=== PATIENT | female | born 1935 | race Caucasian/White ===

== ENCOUNTER 2024-01-12 06:47 | Inpatient (IN) | payer MEDICARE, BC, SELFPAY ==
--- NOTE | ~2024-01-12 | XR_ITS ---
EXAMINATION: XR KNEE, RIGHT CLINICAL INFORMATION: Pain after falling COMPARISON: None TECHNIQUE: Four views of the right knee. FINDINGS: No joint effusion, fracture, dislocation or destructive process. Medial degenerative change noted. Vascular calcifications noted. XR/XR knee RT 2V IMPRESSION: No fracture. Electronically signed by: Jose Antonio Ortiz MD 01/12/2024 09:07 AM EDT
--- NOTE | ~2024-01-12 | CT_ITS ---
EXAMINATION: CT HEAD WITHOUT CONTRAST CLINICAL INFORMATION: Fall, pain COMPARISON: None available. TECHNIQUE: Contiguous axial imaging was performed from the skull base to vertex without intravenous administration of contrast. This CT examination was performed using dose optimization techniques as appropriate, variously including the following: *Automated exposure control *Adjustment of mA and/or kV according to patient size (this includes techniques or standardized protocols for targeted exams where dose is matched to indication/reason for exam; i.e. extremities or head) *Use of iterative reconstruction technique DLP: 647 mGy-cm FINDINGS: There is no evidence of acute intracranial hemorrhage or edematous territorial infarction. Palafox-white matter differentiation appears preserved. Proportional prominence of the ventricles and cortical sulci with diffuse volume loss. Patchy and confluent hypodensities within the periventricular and deep white matter likely representing moderate chronic microangiopathy. Chronic lacunar infarct versus prominent perivascular space in the right inferior basal ganglia. No mass effect or midline shift. No acute extra-axial collection. No acute osseous or soft tissue abnormality. Mild paranasal sinus mucosal thickening. The mastoids are well-aerated. Cerumen in the external auditory canals bilaterally. CT/CT head/brain wo IV con IMPRESSION: No acute intracranial pathology. Diffuse volume loss and moderate chronic microangiopathy. Electronically signed by: Xavier Reyes MD 01/12/2024 08:28 AM EDT
--- NOTE | ~2024-01-12 | XR_ITS ---
EXAMINATION: XR KNEE, LEFT CLINICAL INFORMATION: Pain after falling COMPARISON: None TECHNIQUE: Four views of the left knee. FINDINGS: Moderate medial joint space narrowing with spurring off the medial tibial plateau. Spurring of the superior patella noted. No fracture, dislocation or destructive process. Vascular calcifications are observed. XR/XR knee LT 2V IMPRESSION: Degenerative changes noted. No fracture. Electronically signed by: Jose Antonio Ortiz MD 01/12/2024 09:06 AM EDT
--- NOTE | ~2024-01-12 | XR_ITS ---
EXAMINATION: XR CHEST CLINICAL INFORMATION: Weakness COMPARISON: None available. TECHNIQUE: Frontal view of the chest was obtained. FINDINGS: Hypoinflation with ill-defined left basilar opacity which may represent pneumonia. Prominence of the right hilum could represent a hilar mass or adenopathy. Small bilateral pleural effusions. XR/XR chest 1V IMPRESSION: 1. Hypoinflation with left basilar opacity which may represent pneumonia. 2. Prominence of the right hilum which may represent a hilar mass or adenopathy. Recommend CT of the chest for further evaluation. Electronically signed by: Juan Antonio Bird MD 01/12/2024 03:21 PM EDT
--- NOTE | ~2024-01-12 | CT_ITS ---
EXAMINATION: CT CERVICAL SPINE WITHOUT CONTRAST CLINICAL INFORMATION: Fall, pain COMPARISON: None available. TECHNIQUE: Contiguous axial imaging was performed from the upper chest through the skull base without intravenous administration of contrast. Coronal and sagittal reformats were obtained at the acquisition workstation. This CT examination was performed using dose optimization techniques as appropriate, variously including the following: *Automated exposure control *Adjustment of mA and/or kV according to patient size (this includes techniques or standardized protocols for targeted exams where dose is matched to indication/reason for exam; i.e. extremities or head) *Use of iterative reconstruction technique DLP: 245 mGy-cm FINDINGS: Diffuse decrease in osseous mineralization. The atlantooccipital and atlantoaxial articulations are maintained. Severe degenerative changes of the atlantodental articulations. Straightening of the normal cervical lordosis. The cervical vertebral bodies demonstrate normal height. Minimal anterolisthesis of C4 over C5 and C5 over C6. Multilevel cervical spondylosis with marginal osteophytes, endplate degenerative changes and intervertebral disc space narrowing most prominent at C6-C7. Severe facet arthropathy at multiple levels. No evidence of acute fracture or subluxation. There is no prevertebral soft tissue swelling. The thyroid gland and remaining cervical soft tissues are within normal limits. The lung apices straight biapical pleural parenchymal scarring, right greater than left. CT/CT cervical spine wo IV con IMPRESSION: No acute fracture involving the cervical spine. Multilevel cervical spondylosis as detailed with degenerative changes most pronounced at C6-C7. Electronically signed by: Xavier Reyes MD 01/12/2024 09:06 AM EDT
[2024-01-12 07:00] VITALS: BP 135/76; BP 172/80; PULSE 90; PULSE 94; RESP 16; TEMP 37; O2SAT 94; O2SAT 95; BMI 29.7
--- NOTE | 2024-01-12 07:00 | ED_ITS ---
HPI - General Adult General Chief complaint: Fall Stated complaint: UNWIT FALL,ON HANDS & KNEES,NO C/O,MEMORY CARE CONSTANTIN Time Seen by Provider: 01/12/24 06:59 Source: patient and EMS Mode of arrival: EMS Limitations: physical limitation (patient's demented at baseline) History of Present Illness ED Provider: Chetna Espinal PA-C HPI narrative: Patient is a 88 year old assigned female at with a history of CKD, HTN, squamous cell carcinoma, and dementia, presenting to the emergency department today after being found on her knees. Staff at the patient's memory care unit states that they found the patient on her hands and knees. Staff states that they are unsure if she was lowered to the floor by herself or if she fell. Staff states that the patient is acting per her baseline. Related Data Home Medications ?Medication ?Instructions ?Recorded ?Confirmed Lactobacillus 40-Bifidobact 1 cap PO DAILY 01/12/24 01/12/24 3-S.thermophilus 100 billion cell capsule (Probiotic) acetaminophen 500 mg tablet 500 mg PO BID PRN Fever Or Pain 01/12/24 01/12/24 amlodipine 5 mg tablet 5 mg PO DAILY 01/12/24 01/12/24 cholecalciferol (vitamin D3) 25 25 mcg PO DAILY 01/12/24 01/12/24 mcg (1,000 unit) tablet (Vitamin D3) furosemide 20 mg tablet 20 mg PO DAILY 01/12/24 01/12/24 gabapentin 100 mg capsule 100 mg PO DAILY@1600 01/12/24 01/12/24 melatonin 5 mg tablet 5 mg PO BEDTIME Sleep 01/12/24 01/12/24 menthol 0.44 %-zinc oxide 20.6 % 1 appl topical BID 01/12/24 01/12/24 topical ointment (Calmoseptine) mirtazapine 7.5 mg tablet 7.5 mg PO BEDTIME 01/12/24 01/12/24 multivitamin 1 tab PO DAILY 01/12/24 01/12/24 Allergies Allergy/AdvReac Type Severity Reaction Status Date / Time No Known Allergies Allergy Verified 01/12/24 07:04 Review of Systems 2 Review of Systems: Yes Other (patient severely demented) Neurologic: Reports confusion (per baseline) Psychiatric: Psychiatric: Reports confusion (per baseline) [facility] Past Medical History Attestation statement: The following information was validated with the patient. (all information validated with memory unit staff) Source: old records reviewed, nursing notes reviewed and other ([facility] records reviewed) Social History Social History Unable to assess alcohol history related to: Unknown Use of substances other than those prescribed or required for medical reasons: Unable to respond Advance Directives: Yes Advance Directives on File: Yes Advance Directives Date on File: 01/12/24 Do you have a plan to hurt others: No Plan Physical Exam ED Vital Signs: Vital Signs - 24 hr 01/12/24 07:00 01/12/24 07:10 01/12/24 07:10 Temperature 98.6 F 98.6 F 98.6 F Pulse Rate 90 90 90 Respiratory Rate 16 16 16 Blood Pressure 135/76 135/76 135/76 Pulse Oximetry 95 95 95 Oxygen Delivery Method Room Air Room Air BMI result Body Mass Index 29.7 Const General: cooperative, no acute distress, alert, awake and confusion (per baseline) Nutritional Appearance: well nourished Orientation/consciousness: confusion (per baseline) Limitations: no limitations HENMT Head: Yes normal to inspection and Yes atraumatic Ears: hearing grossly normal bilaterally and external ears normal General nose exam: Normal external nose present, no nasal discharge noted and no epistaxis Face and sinus: Yes normal facial exam, No abrasion and No laceration Mouth: Normal oral and palatal mucosa present, no drooling and no muffled voice Eyes General: appearance normal, both eyes and all related structures Periorbital: periorbital findings normal Eyelids: Yes eyelids normal Conjunctivae: conjunctivae normal Pupils: Equal, round and reactive pupils present EOM: EOMs intact bilaterally Neck Neck: Yes normal visual inspection, Yes full ROM and Yes no lymphadenopathy Chest Chest palpation & inspection: normal inspection of the chest Resp Effort & Inspection: normal respiratory effort and able to speak in complete sentences GI Inspection: Yes normal to inspection Neuro General: moves all extremities and confusion (per baseline) Cranial nerves: Yes Equal, round and reactive pupils present Extrem Other: bilateral knee redness General: Yes full ROM and Yes capillary refill normal Psych Appearance: grossly normal Mental Status: mental status grossly normal Affect: normal affect Attitude: cooperative Thought process: Normal thought process present Thought content: Normal thought content present Insight: Good insight present (Psych) Medications Administered Discontinued Medications Generic Name Dose Route Start Last Admin Trade Name Vu PRN Reason Stop Dose Admin Lactated Ringer's 1,000 mls @ 999 mls/hr 01/12/24 10:30 01/12/24 14:39 Lr IV 01/12/24 11:30 Infused .Q1H1M SOWMYA Infusion Olanzapine 2.5 mg 01/12/24 07:47 01/12/24 13:00 Olanzapine 2.5 Mg Tablet PO 01/12/24 07:48 Not Given ONCE ONE Medical Decision Making Medical Decision Making MDM Narrative: Patient is an 88 year old assigned female at with a history of CKD, HTN, squamous cell carcinoma of the wrist, and dementia presenting to the emergency department today after being found on her knees in the memory unit. Patient's physical exam was as noted in the physical exam portion of this note. Patient's blood work showed a mildly elevated WBC count of 13.9, an initial BUN of 31 (repeat 27), alk phos of 126 (repeat 127), total CK of 1328 (repeat 3401), initial troponin of 190.3 (2 hour repeat 292, 3 hour repeat 213.8.) Patient's urine is pending. Patient's EKG was unremarkable. Patient's chest x-ray showed a possible left basilar pneumonia. Patient's left and right knee x-rays showed no acute process. Patient's CT head and c-spine showed no acute process. Patient's clinical presentation is not consistent with sepsis (@1428). I spoke to the hospitalist team who agreed to admission. Differential Diagnosis Differential Diagnoses: The differential diagnosis associated with the presentation includes Dehydration Fall PNA Admission/Observation Consideration of admission/observation: Escalation of care including admission/observation considered Patient admitted. Consult Healthcare Provider Management of the patient was discussed with: Hospitalist (agreed to admission) Lab Data [facility] Lab Attestation statement: I reviewed the patient's lab results. My interpretation of these results are in the MDM Rationale portion of this note. 01/12/24 08:52 01/12/24 13:26 Labs: Lab Results 01/12/24 01/12/24 01/12/24 Range/Units 08:40 08:52 10:59 WBC 13.9 H (4.8-10.8) X10*3/uL RBC 4.58 (4.20-5.50) X10*6/uL Hgb 13.3 (12.0-16.0) g/dl Hct 40.7 (37.0-47.0) % MCV 88.9 (80.0-98.0) fL MCH 29.0 (27.0-33.0) pg MCHC 32.7 (31.0-35.0) g/dl RDW 13.5 (11.0-16.0) % Plt Count 268 (160-400) X10*3/uL MPV 10.1 (9.4-12.3) fL Immature Gran % (Auto) 0.4 (0.0-0.4) % Neut % (Auto) 91.1 H (45-73) % Lymph % (Auto) 4.6 L (20-40) % [place] % (Auto) 3.7 (2-11) % Eos % (Auto) 0.0 (0-4) % Baso % (Auto) 0.2 (0-2) % Lymph # (Auto) 0.6 L (1.2-4.9) X10*3/uL [place] # (Auto) 0.5 (0.1-1.2) X10*3/uL Eos # (Auto) 0.0 (0.0-0.4) X10*3/uL Baso # (Auto) 0.0 (0.0-0.2) X10*3/uL Abs Immat Gran (auto) 0.06 H (0.00-0.03) X10*3/uL Absolute Neuts (auto) 12.7 H (2.0-8.3) x10*3/uL Absolute Nucleated RBC 0.000 (0.0-0.012) X10*3/uL Nucleated RBC % (auto) 0.0 (0.0-0.2) /100WBC Smear Tech's Comments VERIFIED Sodium 141 (135-145) mmol/L Potassium 4.0 (3.3-5.1) mmol/L Chloride 108 (96-108) mmol/L Carbon Dioxide 26 (22-29) mmol/L Anion Gap 11 L (12-20) BUN 31 H (9-16) mg/dL Creatinine 1.30 (0.5-1.4) mg/dL Estim Creat Clear Calc 30.3 Estimated GFR 39 Random Glucose 113 (60-115) mg/dL Calcium 9.3 (8.4-10.2) mg/dL Magnesium 2.2 (1.6-2.6) mg/dL Total Bilirubin 0.4 (0.0-1.0) mg/dL AST 38 H (5-31) U/L ALT 21 (0-31) U/L Alkaline Phosphatase 126 H (39-117) U/L Total Creatine Kinase 1328 H (26-140) U/L Troponin I High Sens 190.3 H* 292.0 H* D (<3.5-17.0) ng/L Total Protein 7.0 (6.5-8.0) g/dL Albumin 3.7 (3.5-5.0) g/dL Influenza Type A (PCR) NEGATIVE (Negative) Influenza Type B (PCR) NEGATIVE (Negative) RSV RNA Qual (PCR) NEGATIVE (Negative) SARS-CoV-2 RNA (RT-PCR) NEGATIVE (Negative) 01/12/24 01/12/24 Range/Units 13:26 13:36 WBC (4.8-10.8) X10*3/uL RBC (4.20-5.50) X10*6/uL Hgb (12.0-16.0) g/dl Hct (37.0-47.0) % MCV (80.0-98.0) fL MCH (27.0-33.0) pg MCHC (31.0-35.0) g/dl RDW (11.0-16.0) % Plt Count (160-400) X10*3/uL MPV (9.4-12.3) fL Immature Gran % (Auto) (0.0-0.4) % Neut % (Auto) (45-73) % Lymph % (Auto) (20-40) % [place] % (Auto) (2-11) % Eos % (Auto) (0-4) % Baso % (Auto) (0-2) % Lymph # (Auto) (1.2-4.9) X10*3/uL [place] # (Auto) (0.1-1.2) X10*3/uL Eos # (Auto) (0.0-0.4) X10*3/uL Baso # (Auto) (0.0-0.2) X10*3/uL Abs Immat Gran (auto) (0.00-0.03) X10*3/uL Absolute Neuts (auto) (2.0-8.3) x10*3/uL Absolute Nucleated RBC (0.0-0.012) X10*3/uL Nucleated RBC % (auto) (0.0-0.2) /100WBC Smear Tech's Comments Sodium 139 (135-145) mmol/L Potassium 4.2 (3.3-5.1) mmol/L Chloride 108 (96-108) mmol/L Carbon Dioxide 21 L (22-29) mmol/L Anion Gap 14 (12-20) BUN 27 H (9-16) mg/dL Creatinine 1.15 (0.5-1.4) mg/dL Estim Creat Clear Calc 34.3 Estimated GFR 45 Random Glucose 111 (60-115) mg/dL Calcium 9.4 (8.4-10.2) mg/dL Magnesium (1.6-2.6) mg/dL Total Bilirubin 0.4 (0.0-1.0) mg/dL AST 82 H (5-31) U/L ALT 29 (0-31) U/L Alkaline Phosphatase 127 H (39-117) U/L Total Creatine Kinase 3401 H (26-140) U/L Troponin I High Sens 213.8 H* (<3.5-17.0) ng/L Total Protein 6.9 (6.5-8.0) g/dL Albumin 3.5 (3.5-5.0) g/dL Influenza Type A (PCR) (Negative) Influenza Type B (PCR) (Negative) RSV RNA Qual (PCR) (Negative) SARS-CoV-2 RNA (RT-PCR) (Negative) Independent Interpretation I performed an independent interpretation of an: EKG, Plain X-Ray and CT Scan Interpretation: My interpretation is in agreement with the radiologist's impression of these imaging studies. L EXAMINATION: XR CHEST CLINICAL INFORMATION: Weakness COMPARISON: None available. TECHNIQUE: Frontal view of the chest was obtained. FINDINGS: Hypoinflation with ill-defined left basilar opacity which may represent pneumonia. Prominence of the right hilum could represent a hilar mass or adenopathy. Small bilateral pleural effusions. XR/XR chest 1V IMPRESSION: 1. Hypoinflation with left basilar opacity which may represent pneumonia. 2. Prominence of the right hilum which may represent a hilar mass or adenopathy. Recommend CT of the chest for further evaluation. Electronically signed by: Juan Antonio Bird MD 01/12/2024 03:21 PM EDT Dictated By: Juan Antonio Bird MD Signed By: Electronically signed by Juan Antonio Bird MD 01/12/24 1521 EXAMINATION: XR KNEE, LEFT CLINICAL INFORMATION: Pain after falling COMPARISON: None TECHNIQUE: Four views of the left knee. FINDINGS: Moderate medial joint space narrowing with spurring off the medial tibial plateau. Spurring of the superior patella noted. No fracture, dislocation or destructive process. Vascular calcifications are observed. XR/XR knee LT 2V IMPRESSION: Degenerative changes noted. No fracture. Electronically signed by: Jose Antonio Ortiz MD 01/12/2024 09:06 AM EDT Dictated By: Jose Antonio Ortiz MD Signed By: Electronically signed by Jose Antonio Ortiz MD 01/12/24 0906 EXAMINATION: CT HEAD WITHOUT CONTRAST CLINICAL INFORMATION: Fall, pain COMPARISON: None available. TECHNIQUE: Contiguous axial imaging was performed from the skull base to vertex without intravenous administration of contrast. This CT examination was performed using dose optimization techniques as appropriate, variously including the following: *Automated exposure control *Adjustment of mA and/or kV according to patient size (this includes techniques or standardized protocols for targeted exams where dose is matched to indication/reason for exam; i.e. extremities or head) *Use of iterative reconstruction technique DLP: 647 mGy-cm FINDINGS: There is no evidence of acute intracranial hemorrhage or edematous territorial infarction. Palafox-white matter differentiation appears preserved. Proportional prominence of the ventricles and cortical sulci with diffuse volume loss. Patchy and confluent hypodensities within the periventricular and deep white matter likely representing moderate chronic microangiopathy. Chronic lacunar infarct versus prominent perivascular space in the right inferior basal ganglia. No mass effect or midline shift. No acute extra-axial collection. No acute osseous or soft tissue abnormality. Mild paranasal sinus mucosal thickening. The mastoids are well-aerated. Cerumen in the external auditory canals bilaterally. CT/CT head/brain wo IV con IMPRESSION: No acute intracranial pathology. Diffuse volume loss and moderate chronic microangiopathy. Electronically signed by: Xavier Reyes MD 01/12/2024 08:28 AM EDT Dictated By: Xavier Reyes Signed By: Electronically signed by Xavier Reyes 01/12/24 0828 EXAMINATION: XR KNEE, RIGHT CLINICAL INFORMATION: Pain after falling COMPARISON: None TECHNIQUE: Four views of the right knee. FINDINGS: No joint effusion, fracture, dislocation or destructive process. Medial degenerative change noted. Vascular calcifications noted. XR/XR knee RT 2V IMPRESSION: No fracture. Electronically signed by: Jose Antonio Ortiz MD 01/12/2024 09:07 AM EDT Dictated By: Jose Antonio Ortiz MD Signed By: Electronically signed by Jose Antonio Ortiz MD 01/12/24 0907 EXAMINATION: CT CERVICAL SPINE WITHOUT CONTRAST CLINICAL INFORMATION: Fall, pain COMPARISON: None available. TECHNIQUE: Contiguous axial imaging was performed from the upper chest through the skull base without intravenous administration of contrast. Coronal and sagittal reformats were obtained at the acquisition workstation. This CT examination was performed using dose optimization techniques as appropriate, variously including the following: *Automated exposure control *Adjustment of mA and/or kV according to patient size (this includes techniques or standardized protocols for targeted exams where dose is matched to indication/reason for exam; i.e. extremities or head) *Use of iterative reconstruction technique DLP: 245 mGy-cm FINDINGS: Diffuse decrease in osseous mineralization. The atlantooccipital and atlantoaxial articulations are maintained. Severe degenerative changes of the atlantodental articulations. Straightening of the normal cervical lordosis. The cervical vertebral bodies demonstrate normal height. Minimal anterolisthesis of C4 over C5 and C5 over C6. Multilevel cervical spondylosis with marginal osteophytes, endplate degenerative changes and intervertebral disc space narrowing most prominent at C6-C7. Severe facet arthropathy at multiple levels. No evidence of acute fracture or subluxation. There is no prevertebral soft tissue swelling. The thyroid gland and remaining cervical soft tissues are within normal limits. The lung apices straight biapical pleural parenchymal scarring, right greater than left. CT/CT cervical spine wo IV con IMPRESSION: No acute fracture involving the cervical spine. Multilevel cervical spondylosis as detailed with degenerative changes most pronounced at C6-C7. Electronically signed by: Xavier Reyes MD 01/12/2024 09:06 AM EDT Dictated By: Xavier Reyes Signed By: Electronically signed by Xavier Reyes 01/12/24 09 Vent. Rate: 089 BPM Atrial Rate: 089 BPM P-R Int: 146 ms QRS Dur: 094 ms QT Int: 382 ms P-R-T Axes: 021 -28 024 degrees QTc Int: 464 ms Poor data quality, interpretation may be adversely affected Normal sinus rhythm Normal ECG No previous ECGs available Electronically Signed By:MARAL THURSTON DOFACP Dictated By: Maral Thurston DO Signed By: Electronically signed by Maral Thurston DO 01/12/24 1246 Radiology Impression Discussion of test interpretation with radiology: I have reviewed the radiologist's reading. Independent Historian Clinical information obtained from an independent historian. History obtained from or confirmed by: EMS (EMS provided additional history) Critical Care Time Critical Care Time Critical Care Time: Yes Total Critical Care Time: 51 Attestation: I spent 51 minutes of Critical Care Time with this patient. This does not include time spent on separately reported billable procedures. Discharge Plan Discharge Clinical Impression: Dehydration, Pneumonia, Fall Patient Disposition: Admitted As Inpatient Print Language: Iraqi
[2024-01-12 07:10] VITALS: BP 135/76; PULSE 90; RESP 16; TEMP 37; O2SAT 95
--- NOTE | 2024-01-12 07:12 | ECG_ITS ---
Test Reason : unwitnessed fall Blood Pressure : / mmHG Vent. Rate : 089 BPM Atrial Rate : 089 BPM P-R Int : 146 ms QRS Dur : 094 ms QT Int : 382 ms P-R-T Axes : 021 -28 024 degrees QTc Int : 464 ms Poor data quality, interpretation may be adversely affected Normal sinus rhythm Normal ECG No previous ECGs available Referred By: Chetna Espinal Electronically Signed By:MARAL ROBBINS
--- NOTE | 2024-01-12 08:18 | PC.NURSE ---
This RN alerted by ED techs Pt removed her c-collar prior to being cleared via imaging. ED provider notified. One time dose Zyrpexa ordered to with Pts restlessness and agitation. Pt brought to CT and Xray prior to administration and Pt has now bee returned to room and is sleeping.
[2024-01-12 08:58] LABS: Basophils Percent Auto 0.2 % (0-2); Hematocrit 40.7 % (37.0-47.0); Hemoglobin 13.3 g/dl (12.0-16.0); Imm Gran Abs Auto 0.06 X10*3/uL (0.00-0.03); Imm Gran Pct Auto 0.4 % (0.0-0.4); Lymphocytes Absolute Auto 0.6 X10*3/uL (1.2-4.9); Lymphocytes Percent Auto 4.6 % (20-40); MANUAL DIFF FLAG SCAN; Mean Corpuscular HGB Conc 32.7 g/dl (31.0-35.0); Mean Corpuscular Volume 88.9 fL (80.0-98.0); Mean Platelet Volume 10.1 fL (9.4-12.3); Monocytes Absolute Auto 0.5 X10*3/uL (0.1-1.2); Monocytes Percent Auto 3.7 % (2-11); Neutrophils Absolute Auto 12.7 x10*3/uL (2.0-8.3); Neutrophils Percent Auto 91.1 % (45-73); Platelet Count 268 X10*3/uL (160-400); Red Blood Count 4.58 X10*6/uL (4.20-5.50); Red Cell Distribution Width 13.5 % (11.0-16.0); SCAN SMEAR FLAG 1; White Blood Count 13.9 X10*3/uL (4.8-10.8)
--- NOTE | 2024-01-12 09:13 | PHA.MEDREC ---
Addendum entered by Poonam Koenig RPh 01/12/24 09:20: Med rec was reviewed by [facility]. Original Note: Pharmacy Consult ? Medication Reconciliation Pharmacy has completed the medication reconciliation. Utilized list from [facility] to confirm med list.
[2024-01-12 09:20] LABS: Alanine Aminotransferase 21 U/L (0-31); Albumin Level 3.7 g/dL (3.5-5.0); Alkaline Phosphatase 126 U/L (39-117); Anion Gap 11 (12-20); Aspartate Amino Transferase 38 U/L (5-31); Bilirubin Total 0.4 mg/dL (0.0-1.0); Blood Urea Nitrogen 31 mg/dL (9-16); Calcium 9.3 mg/dL (8.4-10.2); Carbon Dioxide 26 mmol/L (22-29); Chloride 108 mmol/L (96-108); Creatinine Clr Calc Pharmacy 30.3; Estimated Glomerular Filt Rate 39; Glucose Random 113 mg/dL (60-115); Magnesium 2.2 mg/dL (1.6-2.6); Sodium 141 mmol/L (135-145)
[2024-01-12 09:36] LABS: SLIDE REVIEW VERIFIED
[2024-01-12 09:44] LABS: Influenza A PCR NEGATIVE (Negative); Influenza B PCR NEGATIVE (Negative); Resp Syncy Virus RNA Qual PCR NEGATIVE (Negative); SARS COV2 PCR INHOUSE NEGATIVE (Negative)
[2024-01-12 09:58] LABS: Troponin-I High Sensitivity 190.3 ng/L (<3.5-17.0)
[2024-01-12] MEDS: Lactated Ringers 1,000 ML 999 ML IV (11:00)
--- NOTE | 2024-01-12 11:02 | PC.NURSE ---
Pt resting comfortably in bed. 20g LAC placed--Pt tolerated placement well.
[2024-01-12 14:20] LABS: Troponin-I High Sensitivity 213.8 ng/L (<3.5-17.0)
[2024-01-12 14:22] LABS: Alanine Aminotransferase 29 U/L (0-31); Albumin Level 3.5 g/dL (3.5-5.0); Alkaline Phosphatase 127 U/L (39-117); Anion Gap 14 (12-20); Aspartate Amino Transferase 82 U/L (5-31); Bilirubin Total 0.4 mg/dL (0.0-1.0); Blood Urea Nitrogen 27 mg/dL (9-16); Calcium 9.4 mg/dL (8.4-10.2); Carbon Dioxide 21 mmol/L (22-29); Chloride 108 mmol/L (96-108); Creatinine Clr Calc Pharmacy 34.3; Estimated Glomerular Filt Rate 45; Glucose Random 111 mg/dL (60-115); Potassium 4.2 mmol/L (3.3-5.1); Sodium 139 mmol/L (135-145); Total Protein 6.9 g/dL (6.5-8.0)
--- NOTE | 2024-01-12 15:04 | MHC.CM.ED ---
Addendum entered by Maame Arguello RN 01/12/24 15:09: MESSAGE LEFT AT [facility] OFFICE AT [phone] FOR A CALL BACK TO DISCUSS DC EXPECTATIONS. Original Note: PATIENT IS IN FROM [facility] IN [place]. [facility] IS ON FILE AND VERIFIED. DOCUMENT DOES NOT ALLOW FOR SNF PLACEMENT AT THIS TIME. PATIENT HAS FEDERAL INSURANCE PLAN THAT DOES NOT HAVE SNF BENEIT IF NEEDED. CM TO CONTACT GUARDIAN AND AMEND THIS NOTE
[2024-01-12] MEDS: cefTRIAXone sodium 1 GM in 0.9 % Sodium Chloride 50 ML IV (16:13)
[2024-01-12] MEDS: Gabapentin 100 MG CAPSULE PO (16:14)
--- NOTE | 2024-01-12 16:14 | PC.NURSE ---
New IV access placed: 20g LAC. Pt given scheduled Gabapentin in pudding, Pt took well.
--- NOTE | 2024-01-12 16:20 | PM.IMHP ---
History of Present Illness Date of Service: 01/12/24 Chief Complaint: Fall 88-year-old female patient with past medical history of chronic kidney disease 3, hypertension, squamous cell carcinoma dementia resident of assisted living facility at [facility] was sent to [facility] since patient was found by the staff on the floor on her hands and knees, question patient fell down versus lowered herself to the floor patient was noted to be at her baseline with underlying dementia, at present patient is unable to provide any meaningful history, does not appear to be in distress workup in the emergency room showed a CPK 1328 repeat CPK after IV fluid was 3401, noted to have elevated troponin 190 >292>213 , EKG showed normal sinus rhythm, no acute ischemic changes poor data quality, chest x-ray showed hypoinflation with possible left basilar opacity may representing pneumonia, prominence of right hilum which may represent a hilar mass or adenopathy, CT cervical spine and CT head showed no acute abnormality x-ray of left knee showed no acute fractures, patient is being admitted to [facility] due to possible pneumonia, fall and acute rhabdomyolysis requiring IV fluids and close clinical follow-up. Review of Systems Review of Systems: Unable to obtain due to underlying dementia PMFSH Pertinent family history: Unable to obtain due to dementia Social History Household Members: Unknown / Unable to assess Housing: Unknown / Unable to assess Do you presently have visiting nurse or other home services: No Unable to assess alcohol history related to: Unknown Patient Tobacco Use Status: Tobacco use Unknown Use of substances other than those prescribed or required for medical reasons: Unable to respond Currently Displaying Signs/Symptoms of Drug Intoxication Withdrawal: No Advance Directives: Yes Advance Directives on File: Yes Advance Directives Date on File: 01/12/24 Do you have a plan to hurt others: No Plan Recently lost weight without trying: Unsure Nutrition Risks: No Nutritional Risk Patient : No : No Poor oral hygiene: No Meds Allergies Allergy/AdvReac Type Severity Reaction Status Date / Time No Known Allergies Allergy Verified 01/12/24 07:04 Active Medications: Current Medications Acetaminophen (Acetaminophen 325 Mg Tablet) 650 mg PO Q6H PRN PRN Reason: Pain, Mild (Pain Scale 1-3), fever or headache Calcium Carbonate (Calcium Carbonate 750 Mg Tab.Chew) 750 mg PO Q4H PRN PRN Reason: Heartburn Enoxaparin Sodium (Enoxaparin Sodium 40 Mg/0.4 Ml Syringe) 40 mg SUBCUT Q24H [facility] Gabapentin (Gabapentin 100 Mg Capsule) 100 mg PO DAILY@1600 [facility] Last Admin: 01/12/24 16:14 Dose: 100 mg Lactated Ringer's (Lr) 1,000 mls @ 100 mls/hr IVCONT .Q10H [facility] Stop: 01/13/24 02:14 Magnesium Hydroxide (Milk Of Magnesia 30 Ml Oral.Susp) 30 ml PO DAILY PRN PRN Reason: Constipation Melatonin (Melatonin 3 Mg Tablet) 6 mg PO BEDTIME PRN PRN Reason: Insomnia Mirtazapine (Mirtazapine 7.5 Mg Tablet) 7.5 mg PO BEDTIME SOWMYA Ondansetron HCl (Ondansetron Hcl 4 Mg/2 Ml Vial) 4 mg IVPUSH Q8H PRN PRN Reason: Nausea and Vomiting Polyethylene Glycol (Polyethylene Glycol 3350 17 Gm Powd.Pack) 17 gm PO DAILY PRN PRN Reason: Constipation Sodium Chloride (0.9 % Sodium Chloride Flush 3 Ml Syringe) 3 ml IVFLUSH QSHIFT [facility] Vitamin D (Cholecalciferol (Vitamin D3) 25 Mcg Tablet) 25 mcg PO DAILY [facility] Home Medications ?Medication ?Instructions ?Recorded ?Confirmed ?Last Taken ?Type Lactobacillus 40-Bifidobact 1 cap PO DAILY 01/12/24 01/12/24 Unknown History 3-S.thermophilus 100 billion cell capsule (Probiotic) acetaminophen 500 mg tablet 500 mg PO BID PRN Fever Or Pain 01/12/24 01/12/24 Unknown History amlodipine 5 mg tablet 5 mg PO DAILY 01/12/24 01/12/24 Unknown History cholecalciferol (vitamin D3) 25 25 mcg PO DAILY 01/12/24 01/12/24 Unknown History mcg (1,000 unit) tablet (Vitamin D3) furosemide 20 mg tablet 20 mg PO DAILY 01/12/24 01/12/24 Unknown History gabapentin 100 mg capsule 100 mg PO DAILY@1600 01/12/24 01/12/24 Unknown History melatonin 5 mg tablet 5 mg PO BEDTIME Sleep 01/12/24 01/12/24 Unknown History menthol 0.44 %-zinc oxide 20.6 % 1 appl topical BID 01/12/24 01/12/24 Unknown History topical ointment (Calmoseptine) mirtazapine 7.5 mg tablet 7.5 mg PO BEDTIME 01/12/24 01/12/24 Unknown History multivitamin 1 tab PO DAILY 01/12/24 01/12/24 Unknown History Physical Exam Vital Signs and Narrative: Vital Signs: Last Vital Signs Temp 98.6 F 01/12/24 07:10 Pulse 90 01/12/24 07:10 Resp 16 01/12/24 07:10 BP 135/76 01/12/24 07:10 Pulse Ox 95 01/12/24 07:10 O2 Del Method Room Air 01/12/24 07:10 BMI result Body Mass Index 29.7 Const: Other: General resting comfortably in no acute distress. Neck supple no JVD. CVS regular rate rhythm, Respiratory lungs clear to auscultation, no respiratory distress, no wheeze, no rhonchi. Gastrointestinal abdomen soft, non tender, bowel sounds audible. Extremities no edema. Both knees no bruising or swelling Neuro moving all 4 extremity, incoherent/garbled speech. Skin no rash Psych poor insight Results Labs 01/13/24 10:11 01/12/24 13:26 Labs: Laboratory Results - last 24 hr 01/12/24 01/12/24 01/12/24 08:40 08:52 10:59 MCV 88.9 MCH 29.0 MCHC 32.7 RDW 13.5 Plt Count 268 MPV 10.1 Immature Gran % (Auto) 0.4 Neut % (Auto) 91.1 H Lymph % (Auto) 4.6 L Mora % (Auto) 3.7 Eos % (Auto) 0.0 Baso % (Auto) 0.2 Lymph # (Auto) 0.6 L Mora # (Auto) 0.5 Eos # (Auto) 0.0 Baso # (Auto) 0.0 Abs Immat Gran (auto) 0.06 H Absolute Neuts (auto) 12.7 H Absolute Nucleated RBC 0.000 Nucleated RBC % (auto) 0.0 Smear Tech's Comments VERIFIED Anion Gap 11 L Estim Creat Clear Calc 30.3 Estimated GFR 39 Random Glucose 113 Calcium 9.3 Magnesium 2.2 Total Bilirubin 0.4 AST 38 H ALT 21 Alkaline Phosphatase 126 H Total Creatine Kinase 1328 H Troponin I High Sens 190.3 H* 292.0 H* D Total Protein 7.0 Albumin 3.7 Influenza Type A (PCR) NEGATIVE Influenza Type B (PCR) NEGATIVE RSV RNA Qual (PCR) NEGATIVE SARS-CoV-2 RNA (RT-PCR) NEGATIVE 01/12/24 01/12/24 13:26 13:36 MCV MCH MCHC RDW Plt Count MPV Immature Gran % (Auto) Neut % (Auto) Lymph % (Auto) Mora % (Auto) Eos % (Auto) Baso % (Auto) Lymph # (Auto) Mora # (Auto) Eos # (Auto) Baso # (Auto) Abs Immat Gran (auto) Absolute Neuts (auto) Absolute Nucleated RBC Nucleated RBC % (auto) Smear Tech's Comments Anion Gap 14 Estim Creat Clear Calc 34.3 Estimated GFR 45 Random Glucose 111 Calcium 9.4 Magnesium Total Bilirubin 0.4 AST 82 H ALT 29 Alkaline Phosphatase 127 H Total Creatine Kinase 3401 H Troponin I High Sens 213.8 H* Total Protein 6.9 Albumin 3.5 Influenza Type A (PCR) Influenza Type B (PCR) RSV RNA Qual (PCR) SARS-CoV-2 RNA (RT-PCR) Imaging Radiologist's Impressions: Impressions Cervical Spine CT 01/12/24 07:12 IMPRESSION: No acute fracture involving the cervical spine. Multilevel cervical spondylosis as detailed with degenerative changes most pronounced at C6-C7. Electronically signed by: Xavier Reyes MD 01/12/2024 09:06 AM EDT RP Knee X-Ray 01/12/24 07:12 IMPRESSION: No fracture. Electronically signed by: Jose Antonio Ortiz MD 01/12/2024 09:07 AM EDT RP Head CT 01/12/24 07:52 IMPRESSION: No acute intracranial pathology. Diffuse volume loss and moderate chronic microangiopathy. Electronically signed by: Xavier Reyes MD 01/12/2024 08:28 AM EDT RP Knee X-Ray 01/12/24 07:55 IMPRESSION: Degenerative changes noted. No fracture. Electronically signed by: Jose Antonio Ortiz MD 01/12/2024 09:06 AM EDT RP Chest X-Ray 01/12/24 11:50 IMPRESSION: 1. Hypoinflation with left basilar opacity which may represent pneumonia. 2. Prominence of the right hilum which may represent a hilar mass or adenopathy. Recommend CT of the chest for further evaluation. Electronically signed by: Juan Antonio Bird MD 01/12/2024 03:21 PM EDT RP Assessment and Plan (1) Rhabdomyolysis: Status: Acute (2) Fall: Status: Acute (3) Pneumonia: Status: Acute Plan 88-year-old female with underlying history of dementia, chronic kidney disease stage 3 was sent to [place] emergency room from assisted living facility after patient was found on the floor on her hands and knees, patient unable to provide meaningful history is no further history surrounding fall is available. Acute rhabdomyolysis due to fall IV fluids follow CPK stable renal function Leukocytosis likely pneumonia versus reactive IV ceftriaxone and azithromycin Normal lactic acid, no fevers, Follow UA No sepsis Elevated troponin Likely due to rhabdomyolysis, EKG no acute ischemia No further workup warranted Unspecified dementia continue home medication As per nursing staff no change in baseline mentation. Hypertension on amlodipine and Lasix follow BP and resume medications Full code Lovenox In my clinical judgment patient need to night inpatient hospitalization for IV fluids due to acute rhabdomyolysis and further workup and treatment with iv abx for possible pneumonia. Quality Stroke Does the patient have a stroke diagnosis?: No VTE Prior VTE?: No VTE Risk Level:: Medical - moderate - high VTE Device Contraindication: Treatment Not Indicated VTE Drug Contraindication: N/A - Med Ordered
[2024-01-12 16:25] LABS: Lactic Acid 1.1 mmol/L (0.5-2.0)
[2024-01-12 16:45] VITALS: BP 152/67; PULSE 76; RESP 18; TEMP 37; O2SAT 95
[2024-01-12 17:55] VITALS: BP 122/89; PULSE 95; RESP 18; TEMP 36.6; O2SAT 94
[2024-01-12] MEDS: Enoxaparin Sodium 40 MG/0.4 ML SYRINGE SUBCUT (17:56)
[2024-01-12] MEDS: Lactated Ringers 1,000 ML 100 ML IVCONT (17:56)
[2024-01-12] MEDS: Azithromycin 500 MG in 0.9 % Sodium Chloride 250 ML 125 MG IV (17:56)
[2024-01-12 19:52] VITALS: BP 138/73; PULSE 93; RESP 18; TEMP 36.4; O2SAT 94
[2024-01-12] MEDS: Mirtazapine 7.5 MG TABLET PO (20:41)
[2024-01-13 03:12] VITALS: BP 152/64; PULSE 78; RESP 18; TEMP 36.7; O2SAT 94
[2024-01-13 07:17] VITALS: BP 155/90; PULSE 82; RESP 18; TEMP 36.4; O2SAT 96
[2024-01-13] MEDS: Cholecalciferol (Vitamin D3) 25 MCG TABLET PO (09:04)
[2024-01-13 10:31] LABS: Hematocrit 40.6 % (37.0-47.0); Hemoglobin 13.2 g/dl (12.0-16.0); Mean Corpuscular HGB Conc 32.5 g/dl (31.0-35.0); Mean Corpuscular Hemoglobin 28.8 pg (27.0-33.0); Mean Corpuscular Volume 88.6 fL (80.0-98.0); Mean Platelet Volume 10.6 fL (9.4-12.3); Platelet Count 241 X10*3/uL (160-400); Red Blood Count 4.58 X10*6/uL (4.20-5.50); Red Cell Distribution Width 13.8 % (11.0-16.0); White Blood Count 7.4 X10*3/uL (4.8-10.8)
[2024-01-13 14:06] VITALS: BP 155/90; PULSE 82; O2SAT 96
--- NOTE | 2024-01-13 14:28 | P.PNIM_ITS ---
Subjective Subjective Date of Service: 01/13/24 Interval History: Being followed for rhabdomyolysis/fall Unable to obtain meaningful history due to underlying dementia and incoherent speech, patient requires 2 assist for ambulation, at times get agitated, no acute events overnight, tolerating diet, no nausea vomiting or diarrhea. Review of Systems Unable to obtain due to dementia Physical Exam 2 Vital Signs: Vital Signs: Last Vital Signs Temp 97.6 F 01/13/24 07:17 Pulse 82 01/13/24 14:06 Resp 18 01/13/24 07:17 BP 155/90 H 01/13/24 14:06 Pulse Ox 96 01/13/24 14:06 O2 Del Method Room Air 01/13/24 07:17 BMI result Body Mass Index 29.7 Const: Other: General resting comfortably in no acute distress. Neck supple no JVD. CVS regular rate rhythm, Respiratory lungs clear to auscultation, no respiratory distress, no wheeze, no rhonchi. Gastrointestinal abdomen soft, non tender, bowel sounds audible. Extremities no edema. Both knees no bruising or swelling Neuro moving all 4 extremity, incoherent/garbled speech. Skin no rash Psych poor insight Objective Data Active Medications Acetaminophen (Acetaminophen 325 Mg Tablet) 650 mg PO Q6H PRN PRN Reason: Pain, Mild (Pain Scale 1-3), fever or headache Calcium Carbonate (Calcium Carbonate 750 Mg Tab.Chew) 750 mg PO Q4H PRN PRN Reason: Heartburn Enoxaparin Sodium (Enoxaparin Sodium 40 Mg/0.4 Ml Syringe) 40 mg SUBCUT Q24H [facility] Last Admin: 01/12/24 17:56 Dose: 40 mg Documented By: DABPaulo Gabapentin (Gabapentin 100 Mg Capsule) 100 mg PO DAILY@1600 [facility] Last Admin: 01/12/24 16:14 Dose: 100 mg Documented By: SCAR Ceftriaxone Sodium 1 gm/ (Sodium Chloride) 50 mls @ 100 mls/hr IV Q24H [facility] Azithromycin 500 mg/ Sodium (Chloride) 250 mls @ 125 mls/hr IV Q24H [facility] Last Infusion: 01/12/24 20:03 Dose: Infused Documented By: QUINCYRISMaynor Magnesium Hydroxide (Milk Of Magnesia 30 Ml Oral.Susp) 30 ml PO DAILY PRN PRN Reason: Constipation Melatonin (Melatonin 3 Mg Tablet) 6 mg PO BEDTIME PRN PRN Reason: Insomnia Mirtazapine (Mirtazapine 7.5 Mg Tablet) 7.5 mg PO BEDTIME [facility] Last Admin: 01/12/24 20:41 Dose: 7.5 mg Documented By: JAMAR Ondansetron HCl (Ondansetron Hcl 4 Mg/2 Ml Vial) 4 mg IVPUSH Q8H PRN PRN Reason: Nausea and Vomiting Polyethylene Glycol (Polyethylene Glycol 3350 17 Gm Powd.Pack) 17 gm PO DAILY PRN PRN Reason: Constipation Sodium Chloride (0.9 % Sodium Chloride Flush 3 Ml Syringe) 3 ml IVFLUSH QSHIFT [facility] Last Admin: 01/13/24 09:08 Dose: Not Given Documented By: MADISON Non-Admin Reason: No IV access Vitamin D (Cholecalciferol (Vitamin D3) 25 Mcg Tablet) 25 mcg PO DAILY [facility] Last Admin: 01/13/24 09:04 Dose: 25 mcg Documented By: MADISON Labs 01/13/24 10:11 01/12/24 13:26 Labs: Laboratory Results - last 24 hr 01/12/24 01/13/24 16:09 10:11 MCV 88.6 MCH 28.8 MCHC 32.5 RDW 13.8 Plt Count 241 MPV 10.6 Absolute Nucleated RBC 0.000 Nucleated RBC % (auto) 0.0 Lactic Acid 1.1 Total Creatine Kinase 2096 H Assessment and Plan (1) Fall: Status: Acute (2) Pneumonia: Status: Acute (3) Rhabdomyolysis: Status: Acute Plan 88-year-old female with underlying history of dementia, chronic kidney disease stage 3 was sent to [place] emergency room from assisted living facility after patient was found on the floor on her hands and knees, patient unable to provide meaningful history is no further history surrounding fall is available. Acute rhabdomyolysis due to fall CPK trending down stable renal function PT eval Leukocytosis likely pneumonia versus reactive Chest x-ray showed hypoinflation with ill-defined left basilar opacity may represent pneumonia, prominence of right hilum could represent hilar mass or adenopathy, recommend outpatient CT chest. IV ceftriaxone and azithromycin WBC normalized, Normal lactic acid, no fevers, UA on collected No sepsis Elevated troponin Likely due to rhabdomyolysis, EKG no acute ischemia No further workup warranted Unspecified dementia continue home medication As per nursing staff from dementia unit, no change in baseline mentation, continue mirtazapine, and gabapentin Hypertension on amlodipine and Lasix follow BP and resume medications as indicated. Full code Lovenox In my clinical judgment patient need continued inpatient hospitalization for IV fluids due to acute rhabdomyolysis and further workup and treatment with iv abx for possible pneumonia. Quality Stroke Does the patient have a stroke diagnosis?: No VTE Prior VTE?: No VTE Risk Level:: Medical - moderate - high VTE Device Contraindication: Treatment Not Indicated VTE Drug Contraindication: N/A - Med Ordered
[2024-01-13 16:00] VITALS: BP 140/60; PULSE 63; RESP 14; TEMP 36.4; O2SAT 95
[2024-01-13] MEDS: Gabapentin 100 MG CAPSULE PO (17:13)
[2024-01-13] MEDS: amLODIPine Besylate 5 MG TABLET PO (17:13)
[2024-01-13] MEDS: Enoxaparin Sodium 40 MG/0.4 ML SYRINGE SUBCUT (17:14)
[2024-01-13] MEDS: cefTRIAXone sodium 1 GM in 0.9 % Sodium Chloride 50 ML IV (17:15)
[2024-01-13] MEDS: 0.9 % Sodium Chloride Flush 3 ML SYRINGE IVFLUSH ×2 (17:24→23:12)
[2024-01-13] MEDS: Azithromycin 500 MG in 0.9 % Sodium Chloride 250 ML 166.67 MG IV (17:45)
[2024-01-13 19:59] VITALS: BP 158/66; PULSE 79; RESP 20; TEMP 36.5; O2SAT 95
[2024-01-13] MEDS: Mirtazapine 7.5 MG TABLET PO (20:05)
[2024-01-14 03:19] VITALS: BP 154/78; PULSE 74; RESP 18; TEMP 36.4; O2SAT 95
[2024-01-14 08:00] VITALS: BP 159/72; PULSE 69; RESP 20; TEMP 36.8; O2SAT 95
[2024-01-14] MEDS: amLODIPine Besylate 5 MG TABLET PO (08:42)
[2024-01-14] MEDS: Cholecalciferol (Vitamin D3) 25 MCG TABLET PO (08:42)
[2024-01-14] MEDS: 0.9 % Sodium Chloride Flush 3 ML SYRINGE IVFLUSH ×3 (08:42→20:01)
--- NOTE | 2024-01-14 12:09 | HO.PM.IMPN ---
Subjective Subjective Date of Service: 01/14/24 Interval History: Patient awake alert, unable to obtain history due to dementia, no acute events overnight, tolerating diet no nausea no vomiting or diarrhea noted. Review of Systems Unable to obtain due to mental status Physical Exam Vital Signs: Vital Signs: Last Vital Signs Temp 98.3 F 01/14/24 08:00 Pulse 69 01/14/24 08:00 Resp 20 01/14/24 08:00 BP 159/72 H 01/14/24 08:00 Pulse Ox 95 01/14/24 08:00 O2 Del Method Room Air 01/14/24 08:00 BMI result Body Mass Index 29.7 Const: Other: General resting comfortably in no acute distress. Neck supple no JVD. CVS regular rate rhythm, Respiratory lungs clear to auscultation, no respiratory distress, no wheeze, no rhonchi. Gastrointestinal abdomen soft, non tender, bowel sounds audible. Extremities no edema. Both knees no bruising or swelling Neuro moving all 4 extremity, incoherent speech. Skin no rash Psych poor insight Objective Data Active Medications Acetaminophen (Acetaminophen 325 Mg Tablet) 650 mg PO Q6H PRN PRN Reason: Pain, Mild (Pain Scale 1-3), fever or headache Amlodipine Besylate (Amlodipine Besylate 5 Mg Tablet) [address] [facility]; Protocol Last Admin: 01/14/24 08:42 Dose: 5 mg Documented By: SEE Calcium Carbonate (Calcium Carbonate 750 Mg Tab.Chew) 750 mg PO Q4H PRN PRN Reason: Heartburn Enoxaparin Sodium (Enoxaparin Sodium 40 Mg/0.4 Ml Syringe) [address] [facility] Last Admin: 01/13/24 17:14 Dose: 40 mg Documented By: LYNN Gabapentin (Gabapentin 100 Mg Capsule) 100 mg PO DAILY@1600 [facility] Last Admin: 01/13/24 17:13 Dose: 100 mg Documented By: LYNN Ceftriaxone Sodium 1 gm/ (Sodium Chloride) 50 mls @ 100 mls/hr IV Q24H [facility] Last Infusion: 01/13/24 17:52 Dose: Infused Documented By: LYNN Azithromycin 500 mg/ Sodium (Chloride) 250 mls @ 125 mls/hr IV Q24H [facility] Last Infusion: 01/13/24 20:07 Dose: Infused Documented By: KANDACE Magnesium Hydroxide (Milk Of Magnesia 30 Ml Oral.Susp) 30 ml PO DAILY PRN PRN Reason: Constipation Melatonin (Melatonin 3 Mg Tablet) 6 mg PO BEDTIME PRN PRN Reason: Insomnia Mirtazapine (Mirtazapine 7.5 Mg Tablet) 7.[address] [facility] Last Admin: 01/13/24 20:05 Dose: 7.5 mg Documented By: KANDACE Ondansetron HCl (Ondansetron Hcl 4 Mg/2 Ml Vial) 4 mg IVPUSH Q8H PRN PRN Reason: Nausea and Vomiting Polyethylene Glycol (Polyethylene Glycol 3350 17 Gm Powd.Pack) 17 gm PO DAILY PRN PRN Reason: Constipation Sodium Chloride (0.9 % Sodium Chloride Flush 3 Ml Syringe) [address] [facility] Last Admin: 01/14/24 08:42 Dose: 3 ml Documented By: SEE Vitamin D (Cholecalciferol (Vitamin D3) 25 Mcg Tablet) [address] [facility] Last Admin: 01/14/24 08:42 Dose: 25 mcg Documented By: SEE Labs 01/13/24 10:11 01/12/24 13:26 Assessment and Plan (1) Rhabdomyolysis: Status: Acute (2) Fall: Status: Acute (3) Pneumonia: Status: Acute Plan 88-year-old female with underlying history of dementia, chronic kidney disease stage 3 was sent to [place] emergency room from assisted living facility after patient was found on the floor on her hands and knees, patient unable to provide meaningful history is no further history surrounding fall is available. Acute rhabdomyolysis due to fall CPK improved 3401 >2096 tolerating fluids stable renal function Uncooperative with lab draws Leukocytosis likely pneumonia versus reactive WBC normalized on IV ceftriaxone and azithromycin started on 01/11 Normal lactic acid, no fevers, UA uncollected No sepsis. Elevated troponin Likely due to rhabdomyolysis, EKG no acute ischemia No further workup warranted Unspecified dementia continue home medication As per nursing staff no change in baseline mentation. Continue home medications Remeron and gabapentin Hypertension on amlodipine 5mg follow bp few high readings. Continue to hold Lasix due to rhabdo Full code Lovenox In my clinical judgment patient need continued inpatient hospitalization for treatment of acute rhabdomyolysis and further workup and treatment with iv abx for possible pneumonia. Quality Stroke Does the patient have a stroke diagnosis?: No VTE Prior VTE?: No VTE Risk Level:: Medical - moderate - high VTE Device Contraindication: Treatment Not Indicated VTE Drug Contraindication: N/A - Med Ordered
--- NOTE | 2024-01-14 15:09 | MHC.CM.PN ---
PT IS NOT SAFE TO GO BACK TO [facility] W/O PP ADDITIONAL HELP RENO BORDEN WHO IS RN CASEMANAGER FROM [facility] [phone] IS WORKING ON MAKING THESE ARRANGEMENTS .
[2024-01-14 15:34] VITALS: BP 151/90; PULSE 74; RESP 14; TEMP 36.4; O2SAT 94
[2024-01-14 15:39] VITALS: BP 127/64; PULSE 95; RESP 16; TEMP 36.2; O2SAT 99
[2024-01-14] MEDS: cefTRIAXone sodium 1 GM in 0.9 % Sodium Chloride 50 ML IV (16:00)
[2024-01-14] MEDS: Gabapentin 100 MG CAPSULE PO (16:00)
[2024-01-14] MEDS: Azithromycin 500 MG in 0.9 % Sodium Chloride 250 ML 125 MG IV (16:59)
[2024-01-14] MEDS: Enoxaparin Sodium 40 MG/0.4 ML SYRINGE SUBCUT (17:01)
[2024-01-14 19:22] VITALS: BP 135/83; PULSE 73; RESP 16; TEMP 36.6; O2SAT 93
[2024-01-14] MEDS: Mirtazapine 7.5 MG TABLET PO (19:57)
[2024-01-15 03:32] VITALS: BP 139/65; PULSE 72; RESP 18; TEMP 36.7; O2SAT 94
[2024-01-15 07:19] VITALS: BP 142/79; PULSE 74; RESP 18; TEMP 37; O2SAT 94
[2024-01-15 08:45] VITALS: BP 142/79
[2024-01-15] MEDS: 0.9 % Sodium Chloride Flush 3 ML SYRINGE IVFLUSH ×3 (08:45→21:28)
[2024-01-15] MEDS: amLODIPine Besylate 5 MG TABLET PO (08:45)
[2024-01-15] MEDS: Cholecalciferol (Vitamin D3) 25 MCG TABLET PO (08:45)
[2024-01-15] MEDS: Furosemide 20 MG TABLET PO (08:45)
--- NOTE | 2024-01-15 12:46 | HO.PM.IMPN ---
Subjective Subjective Date of Service: 01/15/24 Interval History: Being followed for rhabdomyolysis. Resting comfortably, no acute events overnight, tolerating diet with no nausea, no vomiting or diarrhea, incoherent speech. Review of Systems Unable to obtain due to mental status Physical Exam Vital Signs: Vital Signs: Last Vital Signs Temp 98.6 F 01/15/24 07:19 Pulse 74 01/15/24 07:19 Resp 18 01/15/24 07:19 BP 142/79 H 01/15/24 08:45 Pulse Ox 94 01/15/24 07:19 O2 Del Method Room Air 01/15/24 07:19 BMI result Body Mass Index 29.7 Const: Other: General resting comfortably in no acute distress. Neck supple no JVD. CVS regular rate rhythm, Respiratory lungs clear to auscultation, no respiratory distress, no wheeze, no rhonchi. Gastrointestinal abdomen soft, non tender, bowel sounds audible. Extremities no edema. Both knees no bruising or swelling Neuro moving all 4 extremity, incoherent speech. Skin no rash Psych poor insight Objective Data Active Medications Acetaminophen (Acetaminophen 325 Mg Tablet) 650 mg PO Q6H PRN PRN Reason: Pain, Mild (Pain Scale 1-3), fever or headache Amlodipine Besylate (Amlodipine Besylate 5 Mg Tablet) 5 mg PO DAILY [facility]; Protocol Last Admin: 01/15/24 08:45 Dose: 5 mg Documented By: SHERRI Calcium Carbonate (Calcium Carbonate 750 Mg Tab.Chew) 750 mg PO Q4H PRN PRN Reason: Heartburn Enoxaparin Sodium (Enoxaparin Sodium 40 Mg/0.4 Ml Syringe) 40 mg SUBCUT Q24H [facility] Last Admin: 01/14/24 17:01 Dose: 40 mg Documented By: SEE Furosemide (Furosemide 20 Mg Tablet) 20 mg PO DAILY [facility]; Protocol Last Admin: 01/15/24 08:45 Dose: 20 mg Documented By: COTEMA Gabapentin (Gabapentin 100 Mg Capsule) 100 mg PO DAILY@1600 [facility] Last Admin: 01/14/24 16:00 Dose: 100 mg Documented By: SEE Ceftriaxone Sodium 1 gm/ (Sodium Chloride) 50 mls @ 100 mls/hr IV Q24H [facility] Last Infusion: 01/14/24 17:02 Dose: Infused Documented By: SEE Azithromycin 500 mg/ Sodium (Chloride) 250 mls @ 125 mls/hr IV Q24H [facility] Last Infusion: 01/14/24 20:00 Dose: Infused Documented By: MADELEINE Magnesium Hydroxide (Milk Of Magnesia 30 Ml Oral.Susp) 30 ml PO DAILY PRN PRN Reason: Constipation Melatonin (Melatonin 3 Mg Tablet) 6 mg PO BEDTIME PRN PRN Reason: Insomnia Mirtazapine (Mirtazapine 7.5 Mg Tablet) 7.5 mg PO BEDTIME [facility] Last Admin: 01/14/24 19:57 Dose: 7.5 mg Documented By: MADELEINE Ondansetron HCl (Ondansetron Hcl 4 Mg/2 Ml Vial) 4 mg IVPUSH Q8H PRN PRN Reason: Nausea and Vomiting Polyethylene Glycol (Polyethylene Glycol 3350 17 Gm Powd.Pack) 17 gm PO DAILY PRN PRN Reason: Constipation Sodium Chloride (0.9 % Sodium Chloride Flush 3 Ml Syringe) 3 ml IVFLUSH QSHIFT [facility] Last Admin: 01/15/24 08:45 Dose: 3 ml Documented By: SHERRI Vitamin D (Cholecalciferol (Vitamin D3) 25 Mcg Tablet) 25 mcg PO DAILY [facility] Last Admin: 01/15/24 08:45 Dose: 25 mcg Documented By: SHERRI Labs 01/13/24 10:11 01/12/24 13:26 Assessment and Plan (1) Rhabdomyolysis: Status: Acute (2) Pneumonia: Status: Acute (3) Fall: Status: Acute Plan 88-year-old female with underlying history of dementia, chronic kidney disease stage 3 was sent to [place] emergency room from assisted living facility after patient was found on the floor on her hands and knees, patient unable to provide meaningful history is no further history surrounding fall is available. Acute rhabdomyolysis due to fall CPK improved 3401 >2096 tolerating fluids stable renal function, urine yellow colored Seen by Physical therapy they felt patient is not appropriate for skilled PT, they recommend returned to facility with increased level of supervision versus LTC Leukocytosis likely pneumonia versus reactive Chest x-ray showed hypoinflation with left basilar opacity likely pneumonia WBC normalized on IV ceftriaxone and azithromycin started on 01/11 for total 5 days Normal lactic acid, no fevers, UA uncollected No sepsis. Elevated troponin Likely due to rhabdomyolysis, EKG no acute ischemia No further workup warranted Unspecified dementia continue home medication As per nursing staff no change in baseline mentation. Continue home medications Remeron and gabapentin Hypertension on amlodipine 5mg follow bp few high readings. Continue to hold Lasix due to rhabdo Full code Lovenox In my clinical judgment patient need continued inpatient hospitalization for treatment of acute rhabdomyolysis, on IV antibiotics patient not safe to return to assisted living, case management assistant working on arranging supplemental care for assisted living Quality Stroke Does the patient have a stroke diagnosis?: No VTE Prior VTE?: No VTE Risk Level:: Medical - moderate - high VTE Device Contraindication: Treatment Not Indicated VTE Drug Contraindication: N/A - Med Ordered
[2024-01-15 15:38] VITALS: BP 161/77; PULSE 80; RESP 16; TEMP 36.4; O2SAT 95
[2024-01-15] MEDS: cefTRIAXone sodium 1 GM in 0.9 % Sodium Chloride 50 ML IV (16:07)
[2024-01-15] MEDS: Gabapentin 100 MG CAPSULE PO (16:07)
[2024-01-15] MEDS: Azithromycin 500 MG in 0.9 % Sodium Chloride 250 ML 125 MG IV (17:21)
[2024-01-15] MEDS: Enoxaparin Sodium 40 MG/0.4 ML SYRINGE SUBCUT (17:26)
[2024-01-15 19:15] VITALS: BP 161/68; PULSE 89; RESP 14; TEMP 36.8; O2SAT 94
[2024-01-15] MEDS: Mirtazapine 7.5 MG TABLET PO (21:14)
[2024-01-16 03:47] VITALS: BP 145/65; PULSE 68; RESP 16; TEMP 36.1; O2SAT 93
[2024-01-16 07:30] VITALS: BP 142/70; PULSE 74; RESP 18; TEMP 36.9; O2SAT 97
[2024-01-16] MEDS: Cholecalciferol (Vitamin D3) 25 MCG TABLET PO (08:36)
[2024-01-16] MEDS: Furosemide 20 MG TABLET PO (08:36)
[2024-01-16] MEDS: 0.9 % Sodium Chloride Flush 3 ML SYRINGE IVFLUSH ×3 (08:36→20:27)
[2024-01-16] MEDS: amLODIPine Besylate 5 MG TABLET PO (08:36)
--- NOTE | 2024-01-16 10:46 | P.PNIM_ITS ---
Subjective Subjective Date of Service: 01/16/24 Interval History: Resident of [facility] living [facility] has a guardian [employer] # [phone] Being followed for fall and rhabdomyolysis. Unable to obtain meaningful history due to incoherent speech, dementia, patient awake alert tolerating diet, has care provider at bedside arranged by guardian. Review of Systems Unable to obtain due to mental status and incoherent speech Physical Exam 2 Vital Signs: Vital Signs: Last Vital Signs Temp 98.5 F 01/16/24 07:30 Pulse 74 01/16/24 07:30 Resp 18 01/16/24 07:30 BP 142/70 H 01/16/24 07:30 Pulse Ox 97 01/16/24 07:30 O2 Del Method Room Air 01/16/24 07:30 BMI result Body Mass Index 29.7 Const: Other: General awake, alert, resting comfortably in no acute distress. Neck supple no JVD. CVS regular rate rhythm, Respiratory lungs clear to auscultation, no respiratory distress, no wheeze, no rhonchi. Gastrointestinal abdomen soft, obese, non tender, bowel sounds audible. Extremities no edema. Both knees no bruising or swelling Neuro moving all 4 extremity, trying to communicate, incoherent speech. Skin no rash Psych poor insight Objective Data Active Medications Acetaminophen (Acetaminophen 325 Mg Tablet) 650 mg PO Q6H PRN PRN Reason: Pain, Mild (Pain Scale 1-3), fever or headache Amlodipine Besylate (Amlodipine Besylate 5 Mg Tablet) 5 mg PO DAILY [facility]; Protocol Last Admin: 01/16/24 08:36 Dose: 5 mg Documented By: MAURO Calcium Carbonate (Calcium Carbonate 750 Mg Tab.Chew) 750 mg PO Q4H PRN PRN Reason: Heartburn Enoxaparin Sodium (Enoxaparin Sodium 40 Mg/0.4 Ml Syringe) 40 mg SUBCUT Q24H [facility] Last Admin: 01/15/24 17:26 Dose: 40 mg Documented By: MAURO Furosemide (Furosemide 20 Mg Tablet) 20 mg PO DAILY [facility]; Protocol Last Admin: 01/16/24 08:36 Dose: 20 mg Documented By: MAURO Gabapentin (Gabapentin 100 Mg Capsule) 100 mg PO DAILY@1600 [facility] Last Admin: 01/15/24 16:07 Dose: 100 mg Documented By: MAURO Ceftriaxone Sodium 1 gm/ (Sodium Chloride) 50 mls @ 100 mls/hr IV Q24H [facility] Last Infusion: 01/15/24 16:37 Dose: Infused Documented By: MAURO Azithromycin 500 mg/ Sodium (Chloride) 250 mls @ 125 mls/hr IV Q24H [facility] Last Infusion: 01/15/24 19:37 Dose: Infused Documented By: ENRIQUETA Magnesium Hydroxide (Milk Of Magnesia 30 Ml Oral.Susp) 30 ml PO DAILY PRN PRN Reason: Constipation Melatonin (Melatonin 3 Mg Tablet) 6 mg PO BEDTIME PRN PRN Reason: Insomnia Mirtazapine (Mirtazapine 7.5 Mg Tablet) 7.5 mg PO BEDTIME [facility] Last Admin: 01/15/24 21:14 Dose: 7.5 mg Documented By: ENRIQUETA Ondansetron HCl (Ondansetron Hcl 4 Mg/2 Ml Vial) 4 mg IVPUSH Q8H PRN PRN Reason: Nausea and Vomiting Polyethylene Glycol (Polyethylene Glycol 3350 17 Gm Powd.Pack) 17 gm PO DAILY PRN PRN Reason: Constipation Sodium Chloride (0.9 % Sodium Chloride Flush 3 Ml Syringe) 3 ml IVFLUSH QSHIFT [facility] Last Admin: 01/16/24 08:36 Dose: 3 ml Documented By: MAURO Vitamin D (Cholecalciferol (Vitamin D3) 25 Mcg Tablet) 25 mcg PO DAILY [facility] Last Admin: 01/16/24 08:36 Dose: 25 mcg Documented By: MAURO Labs 01/13/24 10:11 01/12/24 13:26 Assessment and Plan (1) Rhabdomyolysis: Status: Acute (2) Fall: Status: Acute (3) Pneumonia: Status: Acute Plan 88-year-old female with underlying history of dementia, chronic kidney disease stage 3 was sent to [place] emergency room from assisted living facility after patient was found on the floor on her hands and knees, patient unable to provide meaningful history is no further history surrounding fall is available. Acute rhabdomyolysis due to fall CPK improved 3401 >2096 tolerating fluids stable renal function, urine yellow colored resists lab draws Last bowel movement 01/13, add scheduled MiraLax Seen by Physical therapy they felt patient is not appropriate for skilled PT, they recommend returned to facility with increased level of supervision versus LTC Leukocytosis likely pneumonia versus reactive Chest x-ray showed hypoinflation with left basilar opacity likely pneumonia WBC normalized on IV ceftriaxone and azithromycin started on 01/11 d4/5 Normal lactic acid, no fevers, UA uncollected No sepsis. Elevated troponin Likely due to rhabdomyolysis, EKG no acute ischemia No further workup warranted Unspecified dementia continue home medication As per nursing staff no change in baseline mentation. Continue home medications Remeron and gabapentin Hypertension on amlodipine 5mg follow bp few high readings will resume Lasix was held due to rhabdo. Full code Lovenox In my clinical judgment patient need continued inpatient hospitalization for treatment of acute rhabdomyolysis, on IV antibiotics patient not safe to return to assisted living, vocational case manager working on arranging supplemental care for assisted living. Quality Stroke Does the patient have a stroke diagnosis?: No VTE Prior VTE?: No VTE Risk Level:: Medical - moderate - high VTE Device Contraindication: Treatment Not Indicated VTE Drug Contraindication: N/A - Med Ordered
[2024-01-16] MEDS: polyethylene glycoL 3350 17 GM POWD.PACK PO (11:39)
[2024-01-16 15:19] VITALS: BP 150/76; PULSE 81; RESP 16; TEMP 36.6; O2SAT 94
[2024-01-16] MEDS: cefTRIAXone sodium 1 GM in 0.9 % Sodium Chloride 50 ML IV (15:19)
[2024-01-16] MEDS: Gabapentin 100 MG CAPSULE PO (15:19)
[2024-01-16] MEDS: Enoxaparin Sodium 40 MG/0.4 ML SYRINGE SUBCUT (16:55)
[2024-01-16] MEDS: Azithromycin 500 MG in 0.9 % Sodium Chloride 250 ML 125 MG IV (16:55)
[2024-01-16 19:43] VITALS: BP 185/86; PULSE 83; RESP 14; TEMP 36.6; O2SAT 92
[2024-01-16] MEDS: Mirtazapine 7.5 MG TABLET PO (20:27)
[2024-01-17 03:09] VITALS: BP 160/88; PULSE 88; RESP 16; TEMP 36.6; O2SAT 92
[2024-01-17 06:56] VITALS: BP 158/72; PULSE 84; RESP 16; TEMP 36.6; O2SAT 93
[2024-01-17] MEDS: Furosemide 20 MG TABLET PO (08:26)
[2024-01-17] MEDS: amLODIPine Besylate 5 MG TABLET PO (08:26)
[2024-01-17] MEDS: Cholecalciferol (Vitamin D3) 25 MCG TABLET PO (08:26)
[2024-01-17] MEDS: polyethylene glycoL 3350 17 GM POWD.PACK PO (08:28)
[2024-01-17] MEDS: 0.9 % Sodium Chloride Flush 3 ML SYRINGE IVFLUSH ×3 (08:28→22:07)
[2024-01-17 09:45] LABS: Hematocrit 41.4 % (37.0-47.0); Hemoglobin 13.5 g/dl (12.0-16.0); Mean Corpuscular HGB Conc 32.6 g/dl (31.0-35.0); Mean Corpuscular Hemoglobin 29.2 pg (27.0-33.0); Mean Corpuscular Volume 89.4 fL (80.0-98.0); Mean Platelet Volume 11.7 fL (9.4-12.3); Platelet Count 156 X10*3/uL (160-400); Red Blood Count 4.63 X10*6/uL (4.20-5.50); Red Cell Distribution Width 13.7 % (11.0-16.0); White Blood Count 11.5 X10*3/uL (4.8-10.8)
[2024-01-17 11:46] LABS: Procalcitonin 0.07 ng/mL
[2024-01-17 12:57] LABS: Anion Gap 12 (12-20); Blood Urea Nitrogen 24 mg/dL (9-16); Calcium 8.8 mg/dL (8.4-10.2); Carbon Dioxide 23 mmol/L (22-29); Chloride 105 mmol/L (96-108); Creatinine Clr Calc Pharmacy 33.1; Estimated Glomerular Filt Rate 43; Glucose Random 161 mg/dL (60-115); Potassium 4.2 mmol/L (3.3-5.1); Sodium 136 mmol/L (135-145)
[2024-01-17 13:02] VITALS: BP 158/72; PULSE 84; O2SAT 93
--- NOTE | 2024-01-17 13:20 | HO.PM.IMPN ---
Subjective Subjective Date of Service: 01/17/24 Interval History: history per pt's caregiver; pt minimally verbal no apparent distress, ate most of breakfast, appears at baseline Review of Systems Review of Systems: Yes Unobtainable due to mental status Physical Exam Vital Signs: Vital Signs: Last Vital Signs Temp 97.8 F 01/17/24 06:56 Pulse 84 01/17/24 06:56 Resp 16 01/17/24 06:56 BP 158/72 H 01/17/24 06:56 Pulse Ox 93 01/17/24 06:56 O2 Del Method Room Air 01/17/24 06:56 BMI result Body Mass Index 29.7 Gen: in no acute distress HEENT: sclera anicteric, moist mucus membranes Neck: supple Lungs: clear to auscultation bilaterally Heart: regular rate and rhythm, no murmurs Abd: soft, non-tender, non-distended Ext: no edema Skin: warm/well-perfused Neuro: alert but minimally verbal, moving all extremities Psych: impaired insight Objective Data Active Medications Acetaminophen (Acetaminophen 325 Mg Tablet) 650 mg PO Q6H PRN PRN Reason: Pain, Mild (Pain Scale 1-3), fever or headache Amlodipine Besylate (Amlodipine Besylate 5 Mg Tablet) 5 mg PO DAILY [facility]; Protocol Last Admin: 01/17/24 08:26 Dose: 5 mg Documented By: BRIELLE Calcium Carbonate (Calcium Carbonate 750 Mg Tab.Chew) 750 mg PO Q4H PRN PRN Reason: Heartburn Enoxaparin Sodium (Enoxaparin Sodium 40 Mg/0.4 Ml Syringe) 40 mg SUBCUT Q24H [facility] Last Admin: 01/16/24 16:55 Dose: 40 mg Documented By: MAURO Furosemide (Furosemide 20 Mg Tablet) 20 mg PO DAILY [facility]; Protocol Last Admin: 01/17/24 08:26 Dose: 20 mg Documented By: BRIELLE Gabapentin (Gabapentin 100 Mg Capsule) 100 mg PO DAILY@1600 [facility] Last Admin: 01/16/24 15:19 Dose: 100 mg Documented By: MAURO Ceftriaxone Sodium 1 gm/ (Sodium Chloride) 50 mls @ 100 mls/hr IV Q24H [facility] Last Infusion: 01/16/24 15:49 Dose: Infused Documented By: MAURO Azithromycin 500 mg/ Sodium (Chloride) 250 mls @ 125 mls/hr IV Q24H [facility] Last Infusion: 01/16/24 19:49 Dose: Infused Documented By: JAMAR Magnesium Hydroxide (Milk Of Magnesia 30 Ml Oral.Susp) 30 ml PO DAILY PRN PRN Reason: Constipation Melatonin (Melatonin 3 Mg Tablet) 6 mg PO BEDTIME PRN PRN Reason: Insomnia Mirtazapine (Mirtazapine 7.5 Mg Tablet) 7.5 mg PO BEDTIME [facility] Last Admin: 01/16/24 20:27 Dose: 7.5 mg Documented By: JAMAR Ondansetron HCl (Ondansetron Hcl 4 Mg/2 Ml Vial) 4 mg IVPUSH Q8H PRN PRN Reason: Nausea and Vomiting Polyethylene Glycol (Polyethylene Glycol 3350 17 Gm Powd.Pack) 17 gm PO DAILY [facility] Last Admin: 01/17/24 08:28 Dose: 17 gm Documented By: BRIELLE Sodium Chloride (0.9 % Sodium Chloride Flush 3 Ml Syringe) 3 ml IVFLUSH QSHIFT [facility] Last Admin: 01/17/24 08:28 Dose: 3 ml Documented By: BRIELLE Vitamin D (Cholecalciferol (Vitamin D3) 25 Mcg Tablet) 25 mcg PO DAILY [facility] Last Admin: 01/17/24 08:26 Dose: 25 mcg Documented By: BRIELLE Labs 01/17/24 09:21 01/17/24 10:29 Labs: Laboratory Results - last 24 hr 01/17/24 01/17/24 09:21 10:29 MCV 89.4 MCH 29.2 MCHC 32.6 RDW 13.7 Plt Count 156 L D MPV 11.7 Absolute Nucleated RBC 0.000 Nucleated RBC % (auto) 0.0 Anion Gap 12 Estim Creat Clear Calc 33.1 Estimated GFR 43 Random Glucose 161 H Calcium 8.8 D Total Creatine Kinase 73 Procalcitonin 0.07 Assessment and Plan (1) Rhabdomyolysis: Status: Acute (2) Fall: Status: Acute (3) Pneumonia: Status: Acute Plan d6 88yo F resident of [facility] with dementia + CKD3, found on the floor on her hands and knees and sent in to ED acute rhabdomyolysis due to fall - CPK nromalized after IV fluids, stable renal function pneumonia - to complete 5d of IV ceftriaxone + azithromycin today [01/11-01/16]; not hypoxic; not septic HTN - continue amlodipine + furosemide unspecified dementia - continue mirtazapine dispo - per PT not appropriate for skilled PT, recommend return to facility with increased level of supervision versus LTC; guardian requests repeat PT eval, ordered VTE ppx - LMWH In my clinical judgment, the patient requires continued inpatient hospitalization for the following reasons: safe disposition Total time managing care of this patient today: 35 minutes. Quality Stroke Does the patient have a stroke diagnosis?: No VTE Prior VTE?: No VTE Risk Level:: Medical - moderate - high VTE Device Contraindication: Treatment Not Indicated VTE Drug Contraindication: N/A - Med Ordered
--- NOTE | 2024-01-17 15:31 | MHC.CM.PN ---
SPOKE WITH CHALO FROM [facility] [phone] SHE WAS FAXED PT EVAL DONE TODAY ,[facility] COULD RETURN WITH ADDITIONAL SERVICES TO [facility] VS LTC CHALO SPOKE WITH [facility] IT ISNT CLEAR WHETHER THEY HAVE COME IN [place] TO DO THEIR ASSESMENT THEY WILL CONTACT CM WHEN THEY HACE COMPLETED THEIR ASSESMENT CHALO WILL CONRACT GUARDIAN , SHE WAS OUT OF TOWN LAST WEEK AND WASNT SURE IF SHE HAS THE RIGHT TO PLACE PT ..T/W EXPLINED THZT PT IS READY FOR DC AND A DECISION NEEDS TO BE MADE
[2024-01-17 15:34] VITALS: BP 160/50; PULSE 83; RESP 14; TEMP 37.6; O2SAT 93
--- NOTE | 2024-01-17 15:37 | MHC.CM.PN ---
CM FAXED PT EVAL FROM TODAY TO [facility] FAX [phone]
--- NOTE | 2024-01-17 15:39 | MHC.CM.PN ---
BREA FROM [facility] [phone] WILL BE OUT AT 10 AM TUES TO DO REASSESMENT OF PT
[2024-01-17] MEDS: cefTRIAXone sodium 1 GM in 0.9 % Sodium Chloride 50 ML IV (17:04)
[2024-01-17] MEDS: Gabapentin 100 MG CAPSULE PO (17:07)
[2024-01-17] MEDS: Enoxaparin Sodium 40 MG/0.4 ML SYRINGE SUBCUT (17:07)
[2024-01-17] MEDS: Azithromycin 500 MG in 0.9 % Sodium Chloride 250 ML 125 MG IV (17:35)
[2024-01-17 19:13] VITALS: BP 150/65; PULSE 82; RESP 17; TEMP 36.6; O2SAT 92
[2024-01-17] MEDS: Mirtazapine 7.5 MG TABLET PO (20:16)
[2024-01-18 03:43] VITALS: BP 143/86; PULSE 71; RESP 16; TEMP 36.3; O2SAT 93
[2024-01-18 08:00] VITALS: BP 142/65; PULSE 67; RESP 20; TEMP 37.3; O2SAT 92
[2024-01-18 10:18] VITALS: BP 142/65
[2024-01-18] MEDS: Furosemide 20 MG TABLET PO (10:18)
[2024-01-18] MEDS: amLODIPine Besylate 5 MG TABLET PO (10:18)
[2024-01-18] MEDS: Cholecalciferol (Vitamin D3) 25 MCG TABLET PO (10:18)
[2024-01-18] MEDS: 0.9 % Sodium Chloride Flush 3 ML SYRINGE IVFLUSH ×3 (10:18→20:45)
--- NOTE | 2024-01-18 11:35 | P.PNIM_ITS ---
Subjective Subjective Date of Service: 01/18/24 Interval History: no apparent distress not hypoxic eating well per [facility] staff pt was ambulating a week ago Review of Systems Review of Systems: Yes Unobtainable due to mental status Physical Exam 2 Vital Signs: Vital Signs: Last Vital Signs Temp 99.1 F 01/18/24 08:00 Pulse 67 01/18/24 08:00 Resp 20 01/18/24 08:00 BP 142/65 H 01/18/24 10:18 Pulse Ox 92 01/18/24 08:00 O2 Del Method Room Air 01/18/24 08:00 BMI result Body Mass Index 29.7 Gen: in no acute distress HEENT: sclera anicteric, moist mucus membranes Neck: supple Lungs: clear to auscultation bilaterally Heart: regular rate and rhythm, no murmurs Abd: soft, non-tender, non-distended Ext: no edema Skin: warm/well-perfused Neuro: alert but minimally verbal, moving all extremities Psych: impaired insight Objective Data Active Medications Acetaminophen (Acetaminophen 325 Mg Tablet) 650 mg PO Q6H PRN PRN Reason: Pain, Mild (Pain Scale 1-3), fever or headache Amlodipine Besylate (Amlodipine Besylate 5 Mg Tablet) 5 mg PO DAILY [facility]; Protocol Last Admin: 01/18/24 10:18 Dose: 5 mg Documented By: SIVA Calcium Carbonate (Calcium Carbonate 750 Mg Tab.Chew) 750 mg PO Q4H PRN PRN Reason: Heartburn Enoxaparin Sodium (Enoxaparin Sodium 40 Mg/0.4 Ml Syringe) 40 mg SUBCUT Q24H [facility] Last Admin: 01/17/24 17:07 Dose: 40 mg Documented By: BRIELLE Furosemide (Furosemide 20 Mg Tablet) 20 mg PO DAILY [facility]; Protocol Last Admin: 01/18/24 10:18 Dose: 20 mg Documented By: SIVA Gabapentin (Gabapentin 100 Mg Capsule) 100 mg PO DAILY@1600 [facility] Last Admin: 01/17/24 17:07 Dose: 100 mg Documented By: BRIELLE Ceftriaxone Sodium 1 gm/ (Sodium Chloride) 50 mls @ 100 mls/hr IV Q24H [facility] Last Infusion: 01/17/24 17:35 Dose: Infused Documented By: BRIELLE Azithromycin 500 mg/ Sodium (Chloride) 250 mls @ 125 mls/hr IV Q24H [facility] Last Infusion: 01/17/24 19:50 Dose: Infused Documented By: SAUD Magnesium Hydroxide (Milk Of Magnesia 30 Ml Oral.Susp) 30 ml PO DAILY PRN PRN Reason: Constipation Melatonin (Melatonin 3 Mg Tablet) 6 mg PO BEDTIME PRN PRN Reason: Insomnia Mirtazapine (Mirtazapine 7.5 Mg Tablet) 7.5 mg PO BEDTIME [facility] Last Admin: 01/17/24 20:16 Dose: 7.5 mg Documented By: SAUD Ondansetron HCl (Ondansetron Hcl 4 Mg/2 Ml Vial) 4 mg IVPUSH Q8H PRN PRN Reason: Nausea and Vomiting Polyethylene Glycol (Polyethylene Glycol 3350 17 Gm Powd.Pack) 17 gm PO DAILY [facility] Last Admin: 01/18/24 10:26 Dose: Not Given Documented By: SIVA Non-Admin Reason: Mult. BMS Sodium Chloride (0.9 % Sodium Chloride Flush 3 Ml Syringe) 3 ml IVFLUSH QSHIFT [facility] Last Admin: 01/18/24 10:18 Dose: 3 ml Documented By: SIVA Vitamin D (Cholecalciferol (Vitamin D3) 25 Mcg Tablet) 25 mcg PO DAILY [facility] Last Admin: 01/18/24 10:18 Dose: 25 mcg Documented By: SIVA Labs 01/17/24 09:21 01/17/24 10:29 Labs: Laboratory Results - last 24 hr 01/17/24 10:29 Anion Gap 12 Estim Creat Clear Calc 33.1 Estimated GFR 43 Random Glucose 161 H Calcium 8.8 D Total Creatine Kinase 73 Procalcitonin 0.07 Assessment and Plan (1) Rhabdomyolysis: Status: Acute (2) Fall: Status: Acute (3) Pneumonia: Status: Acute Plan d7 88yo F resident of [facility] with dementia + CKD3, found on the floor on her hands and knees and sent in to ED acute rhabdomyolysis due to fall - CPK nromalized after IV fluids, stable renal function pneumonia - completed 5d of IV ceftriaxone + azithromycin; not hypoxic; not septic HTN - continue amlodipine + furosemide unspecified dementia - continue mirtazapine dispo - per PT not appropriate for skilled PT, recommend return to facility with increased level of supervision versus LTC; repeat PT eval recommends same - [facility] working on making arrangements for 16/11 care VTE ppx - LMWH In my clinical judgment, the patient requires continued inpatient hospitalization for the following reasons: safe disposition Total time managing care of this patient today: 35 minutes. Quality Stroke Does the patient have a stroke diagnosis?: No VTE Prior VTE?: No VTE Risk Level:: Medical - moderate - high VTE Device Contraindication: Treatment Not Indicated VTE Drug Contraindication: N/A - Med Ordered
[2024-01-18 16:00] VITALS: BP 110/60; PULSE 66; RESP 14; TEMP 36.4; O2SAT 96
[2024-01-18] MEDS: Gabapentin 100 MG CAPSULE PO (16:20)
[2024-01-18] MEDS: Enoxaparin Sodium 40 MG/0.4 ML SYRINGE SUBCUT (16:20)
[2024-01-18 20:00] VITALS: BP 160/76; PULSE 73; RESP 18; TEMP 36.2; O2SAT 94
[2024-01-18] MEDS: Mirtazapine 7.5 MG TABLET PO (20:40)
[2024-01-19 03:01] VITALS: BP 133/63; PULSE 65; RESP 18; TEMP 36; O2SAT 93
[2024-01-19 07:37] VITALS: BP 152/68; PULSE 66; RESP 16; TEMP 36.6; O2SAT 95
--- NOTE | 2024-01-19 09:05 | MHC.CM.PN ---
pt returning today [facility] with / pp servies and caretenders for physical therapy pt has own transportaion home [facility] will arrive at 10
[2024-01-19] MEDS: 0.9 % Sodium Chloride Flush 3 ML SYRINGE IVFLUSH (09:11)
[2024-01-19 09:17] VITALS: BP 152/68
[2024-01-19] MEDS: Furosemide 20 MG TABLET PO (09:17)
[2024-01-19] MEDS: amLODIPine Besylate 5 MG TABLET PO (09:17)
[2024-01-19] MEDS: Cholecalciferol (Vitamin D3) 25 MCG TABLET PO (09:17)
--- NOTE | 2024-01-19 09:41 | W.MHC.F2F ---
Service Date Service Date: 01/19/24 Encounter Date of encounter: 01/19/24 Reasons for Services Signs and symptoms assessed: see PT evaluation Reason for intermediate: medication management, medication treatment and teach disease management Reason for physical therapy: home safety and mobility, therapeutic exercises, gait/transfer training, assess need for DME, ADL training and energy conservation Reason for occupational therapy: home safety and mobility, therapeutic exercises, gait/transfer training, assess need for DME, ADL training and energy conservation MD Overseeing Care: May Awkal Homebound: Leaving the home is medically contraindicated at this time without the asist of a device and/or another person due th the listed conditions above and below. Reason homebound: unsteady gait / fall risk, cognitively impaired / unsafe and weakness related to hospital stay Certification: Based on the above findings, I certify that this patient is confined to the home and needs intermittent intermediate care, physical therapy and/or speech therapy, or continues to need occupational therapy. The patient is under my care, and I have initiated the establishment of the plan of care. The patient will be followed by a physician who will periodically review the plan of care. Time Spent With Patient Time: Total time managing care of this patient today ____ minutes.
--- NOTE | 2024-01-19 09:45 | PM.DS ---
DS: Providers Provider Date of Service: 01/19/24 Date of admission: 01/12/24 15:56 Date of discharge: 01/19/24 Primary care physician: Florina Rosales MD DS: Diagnosis Discharge Diagnosis (1) Rhabdomyolysis: Status: Acute (2) Fall: Status: Acute (3) Pneumonia: Status: Acute (4) Dementia: Status: Acute DS: Summary Hospital Course Hospital Course: From the history and physical by the admitting hospitalist, Maria Luz Womack, 01/12/24: 88-year-old female patient with past medical history of chronic kidney disease 3, hypertension, squamous cell carcinoma dementia resident of assisted living facility at [facility] was sent to [facility] since patient was found by the staff on the floor on her hands and knees, question patient fell down versus lowered herself to the floor patient was noted to be at her baseline with underlying dementia, at present patient is unable to provide any meaningful history, does not appear to be in distress workup in the emergency room showed a CPK 1328 repeat CPK after IV fluid was 3401, noted to have elevated troponin 190 >292>213 , EKG showed normal sinus rhythm, no acute ischemic changes poor data quality, chest x-ray showed hypoinflation with possible left basilar opacity may representing pneumonia, prominence of right hilum which may represent a hilar mass or adenopathy, CT cervical spine and CT head showed no acute abnormality x-ray of left knee showed no acute fractures, patient is being admitted to [facility] due to possible pneumonia, fall and acute rhabdomyolysis requiring IV fluids and close clinical follow-up. 88yo F resident of [facility] with dementia + CKD3, found on the floor on her hands and knees and sent in to ED. She was admitted to the medical-surgical unit and given IV fluids, after which CPK normalized. Serum creatinine remained stable. She was found to have pneumonia and was treated with 5 days of IV ceftriaxone plus azithromycin. She was never septic nor hypoxic during her stay. She was discharged back to the [facility] with increased level of supervision [16/11] and home VNA/PT services. Time Attestation Discharge Coordination Time (in mins): 45 Quality: Safe Use of Opioids Does Pt have an Active Cancer Diagnosis on the Problem List?: No Quality: Stroke Does the patient have a stroke diagnosis?: No Physical Exam Vital Signs: Vital Signs: Last Vital Signs Temp 97.8 F 01/19/24 07:37 Pulse 66 01/19/24 07:37 Resp 16 01/19/24 07:37 BP 152/68 H 01/19/24 09:17 Pulse Ox 95 01/19/24 07:37 O2 Del Method Room Air 01/19/24 07:37 BMI result Body Mass Index 29.7 Gen: in no acute distress HEENT: sclera anicteric, moist mucus membranes Neck: supple Lungs: clear to auscultation bilaterally Heart: regular rate and rhythm, no murmurs Abd: soft, non-tender, non-distended Ext: no edema Skin: warm/well-perfused Neuro: alert but minimally verbal, moving all extremities Psych: impaired insight DS: Data Data Completed and Pending Completed studies during hospitalization [Text1]: Laboratory Results WBC 11.5 X10*3/uL (4.8-10.8) H 01/17/24 09:21 RBC 4.63 X10*6/uL (4.20-5.50) 01/17/24 09:21 Hgb 13.5 g/dl (12.0-16.0) 01/17/24 09:21 Hct 41.4 % (37.0-47.0) 01/17/24 09:21 MCV 89.4 fL (80.0-98.0) 01/17/24 09:21 MCH 29.2 pg (27.0-33.0) 01/17/24 09:21 MCHC 32.6 g/dl (31.0-35.0) 01/17/24 09:21 RDW 13.7 % (11.0-16.0) 01/17/24 09:21 Plt Count 156 X10*3/uL (160-400) L D 01/17/24 09:21 MPV 11.7 fL (9.4-12.3) 01/17/24 09:21 Immature Gran % (Auto) 0.4 % (0.0-0.4) 01/12/24 08:52 Neut % (Auto) 91.1 % (45-73) H 01/12/24 08:52 Lymph % (Auto) 4.6 % (20-40) L 01/12/24 08:52 [place] % (Auto) 3.7 % (2-11) 01/12/24 08:52 Eos % (Auto) 0.0 % (0-4) 01/12/24 08:52 Baso % (Auto) 0.2 % (0-2) 01/12/24 08:52 Lymph # (Auto) 0.6 X10*3/uL (1.2-4.9) L 01/12/24 08:52 [place] # (Auto) 0.5 X10*3/uL (0.1-1.2) 01/12/24 08:52 Eos # (Auto) 0.0 X10*3/uL (0.0-0.4) 01/12/24 08:52 Baso # (Auto) 0.0 X10*3/uL (0.0-0.2) 01/12/24 08:52 Abs Immat Gran (auto) 0.06 X10*3/uL (0.00-0.03) H 01/12/24 08:52 Absolute Neuts (auto) 12.7 x10*3/uL (2.0-8.3) H 01/12/24 08:52 Absolute Nucleated RBC 0.000 X10*3/uL (0.0-0.012) 01/17/24 09:21 Nucleated RBC % (auto) 0.0 /100WBC (0.0-0.2) 01/17/24 09:21 Smear Tech's Comments VERIFIED 01/12/24 08:52 Sodium 136 mmol/L (135-145) 01/17/24 10:29 Potassium 4.2 mmol/L (3.3-5.1) 01/17/24 10:29 Chloride 105 mmol/L (96-108) 01/17/24 10:29 Carbon Dioxide 23 mmol/L (22-29) 01/17/24 10:29 Anion Gap 12 (12-20) 01/17/24 10:29 BUN 24 mg/dL (9-16) H 01/17/24 10:29 Creatinine 1.19 mg/dL (0.5-1.4) 01/17/24 10:29 Estim Creat Clear Calc 33.1 01/17/24 10:29 Estimated GFR 43 01/17/24 10:29 Random Glucose 161 mg/dL (60-115) H 01/17/24 10:29 Lactic Acid 1.1 mmol/L (0.5-2.0) 01/12/24 16:09 Calcium 8.8 mg/dL (8.4-10.2) D 01/17/24 10:29 Magnesium 2.2 mg/dL (1.6-2.6) 01/12/24 08:52 Total Bilirubin 0.4 mg/dL (0.0-1.0) 01/12/24 13:26 AST 82 U/L (5-31) H 01/12/24 13:26 ALT 29 U/L (0-31) 01/12/24 13:26 Alkaline Phosphatase 127 U/L (39-117) H 01/12/24 13:26 Total Creatine Kinase 73 U/L (26-140) 01/17/24 10:29 Troponin I High Sens 213.8 ng/L (<3.5-17.0) H* 01/12/24 13:36 Total Protein 6.9 g/dL (6.5-8.0) 01/12/24 13:26 Albumin 3.5 g/dL (3.5-5.0) 01/12/24 13:26 Procalcitonin 0.07 ng/mL 01/17/24 10:29 Influenza Type A (PCR) NEGATIVE (Negative) 01/12/24 08:40 Influenza Type B (PCR) NEGATIVE (Negative) 01/12/24 08:40 RSV RNA Qual (PCR) NEGATIVE (Negative) 01/12/24 08:40 SARS-CoV-2 RNA (RT-PCR) NEGATIVE (Negative) 01/12/24 08:[address] 01/12/24 07:12 IMPRESSION: No acute fracture involving the cervical spine. Multilevel cervical spondylosis as detailed with degenerative changes most pronounced at C6-C7. Electronically signed by: Xavier Reyes MD 01/12/2024 09:06 AM EDT RP Head CT 01/12/24 07:52 IMPRESSION: No acute intracranial pathology. Diffuse volume loss and moderate chronic microangiopathy. Electronically signed by: Xavier Reyes MD 01/12/2024 08:28 AM EDT RP Knee X-Ray 01/12/24 07:55 IMPRESSION: Degenerative changes noted. No fracture. Electronically signed by: Jose Antonio Ortiz MD 01/12/2024 09:06 AM EDT RP Chest X-Ray 01/12/24 11:50 IMPRESSION: 1. Hypoinflation with left basilar opacity which may represent pneumonia. 2. Prominence of the right hilum which may represent a hilar mass or adenopathy. Recommend CT of the chest for further evaluation. Electronically signed by: Juan Antonio Bird MD 01/12/2024 03:21 PM EDT RP Discharge Plan Discharge Anticipated Discharge Date/Time: 01/19/24 09:42 Patient Disposition: Home Health Service Discharge Diagnosis: fall rhabdomyolysis pneumonia dementia Referrals: caretenders [Other] - 1 Week Florina Rosales MD [Primary Care Provider] - 1 Week Discharge Medications: Continued multivitamin Tablet 1 tab PO DAILY amlodipine 5 mg Tablet 5 mg PO DAILY acetaminophen 500 mg Tablet 500 mg PO BID PRN (Reason: Fever Or Pain) furosemide 20 mg Tablet 20 mg PO DAILY gabapentin 100 mg Capsule 100 mg PO DAILY@1600 mirtazapine 7.5 mg Tablet 7.5 mg PO BEDTIME cholecalciferol (vitamin D3) [Vitamin D3] 25 mcg (1,000 unit) Tablet 25 mcg PO DAILY melatonin 5 mg Tablet 5 mg PO BEDTIME menthol-zinc oxide [Calmoseptine] 0.44-20.6 % Ointment 1 appl TOPICAL BID Probiotic 100 billion cell Capsule 1 cap PO DAILY Discharge Orders: Discharge Order (Routine); Ordered 01/19/24 Ordered By: Rad Niño Diet: Advance to usual diet Activity on Discharge: As tolerated Stand Alone Forms: Patient Portal Discharge page Print Language: Czech Care Plan Goals: recovery from pneumonia fall prevention Health Concerns: fall rhabdomyolysis pneumonia dementia Plan of Treatment: return to assisted living facility with 24h/7d care visiting nurse services/home physical therapy no medication changes; pneumonia was fully treated Please follow up with your primary care doctor within 1 week. Return to the hospital if you experience recurrent or worsening symptoms. Assessment: See Discharge Summary.
[2024-01-19 10:00] VITALS: BP 137/66
== END 2024-01-19 11:15 | disposition home health service (06) | DRG 557 ==
LOC: HO.ED 15:33 → HO.EDOVER 16:12 → HO.S3 16:31
PROVIDERS: Physician Assistant Medical; Admitting Provider Hospitalist; Emergency Provider Emergency Medicine; PCP Internal Medicine; Visit Provider Family Medicine
DX: M62.82 Rhabdomyolysis (principal); J18.9 Pneumonia, unspecified organism; I12.9 Hypertensive chronic kidney disease with stage 1 through stage 4 chronic kidney disease, or unspecified chronic kidney disease; N18.30 Chronic kidney disease, stage 3 unspecified; F03.90 Unspecified dementia, unspecified severity, without behavioral disturbance, psychotic disturbance, mood disturbance, and anxiety; W19.XXXA Unspecified fall, initial encounter; Z20.822 Contact with and (suspected) exposure to COVID-19; Z79.899 Other long term (current) drug therapy
CPT/HCPCS: 0241U; 36415; 70450; 71045; 72125; 73560; 80048; 80053; 82550; 83605; 83735; 84145; 84484; 85025; 85027; 93005; 97162; 97530; 99285; J0456; J0696; J1650; J7120

== ENCOUNTER → 2024-01-12 15:56 | Outpatient (BNV) | payer BC, SELFPAY | PROVIDERS: Admitting Provider Hospitalist; Emergency Provider Emergency Medicine; PCP Internal Medicine; Visit Provider Hospitalist | DX: M62.82 Rhabdomyolysis (principal); W19.XXXA Unspecified fall, initial encounter; J18.9 Pneumonia, unspecified organism; F03.911 Unspecified dementia, unspecified severity, with agitation | CPT/HCPCS: 99223; 99232; 99233; 99239; G0180 ==